=== PATIENT | female | born 1960 | race Caucasian/White ===

== ENCOUNTER 2017-07-24 19:45 | Emergency (ER) | payer OTHER, MEDICARE ==
[~2017-07-24] VITALS: Ht 162.6 cm; Wt 94.3 kg
[~2017-07-24 19:45] MED LIST: AMOXICILLIN500 MG PO; CEFDINIR300 M1 PO; CIPRODEX 0.3%-7.5 ML AS; CIPRODEX OTIC7.5 ML OT
[2017-07-24 20:41] LABS: ABSOLUTE BASOPHIL COUNT 0 /CUMM (0.0-0.2); ABSOLUTE EOSINOPHIL COUNT 0.2 /CUMM (0.0-0.7); ABSOLUTE LYMPH COUNT 2.6 /CUMM (1.2-3.4); BASOPHIL % 0.3 % (0.0-2.0); EOSINOPHIL % 1.4 % (0-5); MEAN CORPUSCULAR HGB 29.9 PG (27.0-31.0); MEAN CORPUSCULAR HGB CONC 33.7 G/DL (33.0-37.0); MEAN CORPUSCULAR VOLUME 88.7 FL (81.0-99.0); MEAN PLATELET VOLUME 8.4 FL (7.4-10.4); PLATELET COUNT 508 /CUMM (130-400); RBC DISTRIBUTION WIDTH 13.5 % (11.5-14.5); RED BLOOD CELL CT 4.74 /CUMM (4.20-5.40); WHITE BLOOD CELL COUNT 13.8 /CUMM (4.8-10.8)
--- NOTE | 2017-07-24 20:43 | ED DYSPNEA/ASTHMA COMPLAINT ---
History of Present Illness General Chief Complaint: Upper Respiratory Sx/Fever Stated Complaint: COUGH,PAIN IN ABD AND CHEST Source: patient Exam Limitations: no limitations Vital Signs & Intake/Output Vital Signs & Intake/Output Vital Signs Date Time Temp Pulse Resp B/P B/P Pulse O2 O2 Flow FiO2 Mean Ox Delivery Rate 07/257 97.6 78 18 143/87 98 Room Air 07/24 2028 98.4 88 18 122/87 95 Room Air ED Intake and Output 07/25 0000 07/24 1200 Intake Total 1000 Output Total Balance 1000 Intake, IV 1000 Patient 208 lb Weight Weight Standing Scale Measurement Method Allergies Coded Allergies: NO KNOWN ALLERGIES (02/15/16) Reconcile Medications Albuterol Sulfate (Ventolin Hfa) 90 MCG HFA.AER.AD 2 PUF INH Q4-6 PRN PRN cough/wheeze Amoxicillin 500 MG CAP 1 TAB PO BID INFECTION Amoxicillin/Potassium Clav (Augmentin 875-125 Tablet) 875 MG-125 MG TABLET 1 TAB PO BID bronchitis Benzonatate (Tessalon Perle) 100 MG CAPSULE 1 CAP PO TID PRN cough Cefdinir 300 MG CAPSULE 1 CAP PO BID OTITIS MEDIA CIPROFLOXACIN HCL/DEXAMETH (Ciprodex Otic Suspension) 7.5 ML CEFERINO 4 DROP BID INFECTION Ciprofloxacin HCl/Dexameth (Ciprodex Otic Suspension) 0.3 %-0.1 % DROPS.SUSP 4 GTT OT BID OTITIS EXTERNA Ondansetron (Zofran Odt) 4 MG TAB.RAPDIS 1 TAB SL TID PRN nausea Prednisolone 15 MG/5 ML SOLUTION 10 ML PO QDAY bronchitis Triage Note: RECEIVED 57 YO FEMALE C/O ABDOMINAL PAIN STARTED ABOUT ONE WEEK AGO WITH NAUSEA, VOMITING AND ABDOMINAL SWELLING. PT ALSO C/O PRODUCTIVE COUGH, YELLOW/BROWN PHLEM AND CHEST PAIN WITH COUGHING AND VOMITING. Triage Nurses Notes Reviewed? yes Onset: Gradual Duration: day(s):, waxing and waning Timing: recent history Severity: mild, moderate Activities at Onset: none Prior Episodes/Possible Cause: occasional episodes Associated Symptoms: cough HPI: 57 YO WOMAN presents with cough, phlegm, occasional vomiting, chest pain with coughing for the past week. "I haven't been able to hold anything down." She notes no fever, chills, wheezing, diarrhea, rashes, radiation. She is otherwise well. Past History Travel History Traveled to [place] past 21 day No Medical History Any Pertinent Medical History? see below for history Neurological: NONE EENT: NONE Cardiovascular: NONE Respiratory: NONE Gastrointestinal: NONE Hepatic: NONE Renal: NONE Musculoskeletal: NONE Psychiatric: schizophrenia Endocrine: diabetes Blood Disorders: NONE Cancer(s): NONE MUSIC THERAPIST/Reproductive: NONE Surgical History Surgical History: non-contributory Psychosocial History What is your primary language Moh[place] Tobacco Use: Never used Family History Hx Contributory? No Review of Systems Review of Systems Constitutional: Reports: no symptoms. EENTM: Reports: no symptoms. Respiratory: Reports: no symptoms. Cardiovascular: Reports: no symptoms. GI: Reports: no symptoms. Genitourinary: Reports: no symptoms. Musculoskeletal: Reports: no symptoms. Skin: Reports: no symptoms. Neurological/Psychological: Reports: no symptoms. Hematologic/Endocrine: Reports: no symptoms. Immunologic/Allergic: Reports: no symptoms. All Other Systems: Reviewed and Negative Physical Exam Physical Exam General Appearance: well developed/nourished, no apparent distress Head: atraumatic, normal appearance Eyes: Bilateral: normal appearance. Ears, Nose, Throat: normal pharynx, normal ENT inspection Neck: normal inspection, supple, full range of motion Respiratory: parasternal tenderness, mild rhonchi Cardiovascular: regular rate/rhythm Gastrointestinal: normal bowel sounds, soft, non-tender, no organomegaly Extremities: normal inspection, normal capillary refill, normal range of motion, no edema Neurologic/Psych: no motor/sensory deficits, awake, alert, oriented x 3 Skin: intact, normal color, warm/dry Core Measures ACS in differential dx? No CVA/TIA Diagnosis No Sepsis Present: No Sepsis Focused Exam Completed? No Progress Differential Diagnosis: asthma, bronchitis, pulmonary embolism Plan of Care: Orders Procedure Date/time Status TROPONIN LEVEL 07/25 0005 Complete BASIC METABOLIC PANEL 07/25 0005 Complete Add-on Test (ER Only) 07/24 2102 Active DEPAKOTE LEVEL 07/24 2018 Complete TROPONIN LEVEL 07/24 1953 Complete LIPASE 07/24 1953 Complete HEPATIC FUNCTION PANEL 07/24 1953 Complete D-DIMER 07/24 1953 Complete CBC WITHOUT DIFFERENTIAL 07/24 1953 Complete BASIC METABOLIC PANEL 07/24 1953 Complete AMYLASE 07/24 1953 Complete EKG 07/24 1953 Active Current Medications Sig/Bassam Start time Last Medication Dose Stop Time Status Admin Acetaminophen 650 MG Q4P PRN 07/24 2244 AC 07/24 (Tylenol) 2244 Laboratory Tests 07/25/17 0210: Anion Gap 7, Estimated GFR > 60, BUN/Creatinine Ratio 10.0, Glucose 89, Calcium 9.1, Troponin I < 0.01 07/24/17 2019: Anion Gap 12, Estimated GFR 58 L, BUN/Creatinine Ratio 11.0, Glucose 108 H, Calcium 10.5 H, Total Bilirubin 0.7, Direct Bilirubin 0.7 H, AST 43 H, ALT 102 H, Alkaline Phosphatase 102, Troponin I < 0.01, Total Protein 7.3, Albumin 4.2, Amylase 42, Lipase 202, D-Dimer High Sensitivty 376 H, CBC w Diff NO MAN DIFF REQ, RBC 4.74, MCV 88.7, MCH 29.9, MCHC 33.7, RDW 13.5, MPV 8.4, Gran % 72.5, Lymphocytes % 18.9 L, Monocytes % 6.9, Eosinophils % 1.4, Basophils % 0.3 , Absolute Granulocytes 10.0 H, Absolute Lymphocytes 2.6, Absolute Monocytes 1.0 H, Absolute Eosinophils 0.2, Absolute Basophils 0, Valproic Acid 50.1 Diagnostic Imaging: Viewed by Me: CT Scan. Discussed w/RAD: CT Scan. Radiology Impression: PATIENT: BAYLEE SIMMONS PRESENT AGE: 57 PATIENT ACCOUNT NO: [id number] : 62 LOCATION: [facility] ([facility] ORDERING PHYSICIAN: Campos Bledsoe MD SERVICE DATE: 07/24/17 EXAM TYPE: CAT - CTA CHEST-PULMONARY EMBOLISM EXAMINATION: CT ANGIOGRAM OF THE CHEST WITH AND WITHOUT CONTRAST (CT PULMONARY ANGIOGRAM FOR PE) CLINICAL INFORMATION: Cough, phlegm and chest pain. COMPARISON: None TECHNIQUE: Prior to contrast administration, noncontrast localization images were obtained. Subsequently, multidetector volumetric imaging was performed from the thoracic inlet to below the diaphragms following the administration of 80 mL Omnipaque 350 intravenous contrast. No contrast reaction reported. Sagittal, coronal, and MIP oblique sagittal reformatted images were obtained on the CT workstation, uploaded to PACS, and reviewed. Total exam dose-length product 519.79 mGy-cm. FINDINGS: QUALITY OF STUDY/CONTRAST BOLUS: Satisfactory PULMONARY ARTERIES: No central or segmental pulmonary emboli. THORACIC AORTA: No aneurysm or dissection. LUNG: No focal consolidation, nodules or masses. PLEURA: No pleural effusion or pneumothorax. MEDIASTINUM: Normal heart size. No pericardial effusion. No hilar or mediastinal lymphadenopathy. No evidence of septal bowing or right heart strain. CHEST WALL/AXILLA: No axillary or internal mammary lymphadenopathy. OSSEOUS STRUCTURES: No acute or suspicious osseous abnormality. Mild degenerative changes of the visualized spine. UPPER ABDOMEN: Unremarkable. No reflux of contrast into the hepatic veins to suggest elevated right heart pressures. IMPRESSION: No evidence of pulmonary embolism or other acute pathology of the chest. VTE: Negative. DICTATED BY: Rishabh Rogel MD DATE/TIME DICTATED:07/24/172131 EMERGENCY PHYSICIAN:GUSTAVO DATE/TIME TRANSCRIBED:2131 CONFIDENTIAL, DO NOT COPY WITHOUT APPROPRIATE AUTHORIZATION. < Electronically signed in Other Vendor System> SIGNED BY: Rishabh Rogel MD 07/24/172138 Initial ED EKG: nsr, no acute changes. Repeat EKG: unchanged Departure Departure Disposition: HOME OR SELF CARE Condition: Stable Clinical Impression Primary Impression: Bronchitis Secondary Impressions: Chest pain, Hyponatremia Referrals: Unknown (PCP/Family) Departure Forms: Customer Survey General Discharge Information Prescriptions: Current Visit Scripts Amoxicillin/Potassium Clav (Augmentin 875-125 Tablet) 1 TAB PO BID #20 TAB Prednisolone 10 ML PO QDAY #40 ML Ondansetron (Zofran Odt) 1 TAB SL TID PRN nausea #10 TAB Benzonatate (Tessalon Perle) 1 CAP PO TID PRN cough #30 CAP Albuterol Sulfate (Ventolin Hfa) 2 PUF INH Q4-6 PRN PRN cough/wheeze #1 INHAL Comments 07/25/17, 4:13am... pt feeling well, sodium improved... no active vomiting and she feels comfortable going home. Critical Care Note Critical Care Note Critical Care Time: non-applicable
[2017-07-24 20:47] LABS: GRANULOCYTE % 72.5 % (42.2-75.2)
--- NOTE | 2017-07-24 21:39 | CT SCAN REPORT ---
EXAMINATION: CT ANGIOGRAM OF THE CHEST WITH AND WITHOUT CONTRAST (CT PULMONARY ANGIOGRAM FOR PE) CLINICAL INFORMATION: Cough, phlegm and chest pain. COMPARISON: None TECHNIQUE: Prior to contrast administration, noncontrast localization images were obtained. Subsequently, multidetector volumetric imaging was performed from the thoracic inlet to below the diaphragms following the administration of 80 mL Omnipaque 350 intravenous contrast. No contrast reaction reported. Sagittal, coronal, and MIP oblique sagittal reformatted images were obtained on the CT workstation, uploaded to PACS, and reviewed. Total exam dose-length product 519.79 mGy-cm. FINDINGS: QUALITY OF STUDY/CONTRAST BOLUS: Satisfactory PULMONARY ARTERIES: No central or segmental pulmonary emboli. THORACIC AORTA: No aneurysm or dissection. LUNG: No focal consolidation, nodules or masses. PLEURA: No pleural effusion or pneumothorax. MEDIASTINUM: Normal heart size. No pericardial effusion. No hilar or mediastinal lymphadenopathy. No evidence of septal bowing or right heart strain. CHEST WALL/AXILLA: No axillary or internal mammary lymphadenopathy. OSSEOUS STRUCTURES: No acute or suspicious osseous abnormality. Mild degenerative changes of the visualized spine. UPPER ABDOMEN: Unremarkable. No reflux of contrast into the hepatic veins to suggest elevated right heart pressures. IMPRESSION: No evidence of pulmonary embolism or other acute pathology of the chest. VTE: Negative.
[2017-07-25] MEDS ORDERED: ZOFRAN ODT4 M1 SL (04:13)
[2017-07-25] MEDS ORDERED: AUGMENTIN 875-1 EACH PO (04:13)
[2017-07-25] MEDS ORDERED: TESSALON PERLE100 M1 PO (04:13)
[2017-07-25] MEDS ORDERED: PREDNISOLO15 MG/5 M4 PO (04:13)
[2017-07-25] MEDS ORDERED: VENTOLIN HFA18 GM INH (04:13)
[2017-07-25 04:17] VITALS: BP 143/87
== END 2017-07-25 04:26 ==
LOC: ERH 19:45
PROVIDERS: Pediatrics
DX: J40 Bronchitis, not specified as acute or chronic (principal); R07.9 Chest pain, unspecified
CPT/HCPCS: 93005; 93010; 96360; 96361; J3101; J3490